=== PATIENT | female | born 1955 | race Caucasian/White ===

== ENCOUNTER 2024-02-26 22:06 | Observation (INO) | payer MEDICARE, OTHER ==
[2024-02-26 23:55] LABS: EOS % 2.3 % (0-4.5); HEMATOCRIT 35.1 % (32.4-45.2); HEMOGLOBIN 12.1 GM/dL (10.7-15.3); LYMPH % 36.5 % (8-40); MCH 27.7 pg (25.7-33.7); MCHC 34.5 g/dl (32.0-36.0); MEAN CELL VOLUME 80.4 fl (80-96); MEAN PLT VOLUME 6.9 fl (7.5-11.1); MONO % 7.1 % (3.8-10.2); NEUT % 53.1 % (42.8-82.8); PLATELET COUNT 388 10^3/uL (134-434); RBC 4.37 M/mm3 (3.60-5.2); RDW 14.1 % (11.6-15.6)
[2024-02-26 23:57] LABS: EPI CELLS 1 /uL (0-25.1); HYALINE CASTS 0 /uL (0-3.1); URINE APPEARANCE CLEAR; URINE BACTERIA 7 /uL (0-1359); URINE BILIRUBIN NEGATIVE (NEGATIVE); URINE COLOR YELLOW; URINE GLUCOSE (UA) NEGATIVE (NEGATIVE); URINE KETONE NEGATIVE (NEGATIVE); URINE LEUK ESTERASE TRACE (NEGATIVE); URINE NITRITE NEGATIVE (NEGATIVE); URINE PROTEIN NEGATIVE (NEGATIVE); URINE RBC 78 /uL (0-23.9); URINE UROBILINOGEN 0.2 mg/dL (0.2-1.0); URINE WBC 5 /uL (0-25.8)
[2024-02-27 00:03] LABS: INR 1.12 (0.83-1.09); PROTHROMBIN TIME (PATIENT) 12.6 SEC (9.7-13.0)
[2024-02-27 00:06] LABS: ACTIVATED PTT 37.4 SECONDS (25.2-36.5)
[2024-02-27 00:16] LABS: POTASSIUM 3.7 mmol/L (3.5-5.1)
[2024-02-27 00:19] LABS: CALCIUM 9.6 mg/dL (8.5-10.1)
[2024-02-27 00:20] LABS: ALBUMIN 3.3 g/dl (3.4-5.0); BLOOD UREA NITROGEN 16.2 mg/dL (7-18)
[2024-02-27 00:23] LABS: CREATININE 0.7 mg/dL (0.55-1.3); PHOSPHOROUS 2.7 mg/dL (2.5-4.9)
[2024-02-27 00:24] LABS: BILIRUBIN,TOTAL 0.3 mg/dL (0.2-1); TOT PROT 6.9 g/dl (6.4-8.2)
[2024-02-27] MEDS ORDERED: AZITHROMYCIN IVPB 500 MG/250 ML BAG IVPB ONE (05:04)
[2024-02-27] MEDS: AZITHROMYCIN IVPB 500 MG in DEXTROSE 5%-WATER - 250 ML IVPB SCH (05:14)
[2024-02-27 06:26] LABS: HEMATOCRIT 36.2 % (32.4-45.2); HEMOGLOBIN 12.4 GM/dL (10.7-15.3); MCH 27.9 pg (25.7-33.7); MCHC 34.2 g/dl (32.0-36.0); MEAN CELL VOLUME 81.6 fl (80-96); MEAN PLT VOLUME 6.9 fl (7.5-11.1); PLATELET COUNT 395 10^3/uL (134-434); RBC 4.43 M/mm3 (3.60-5.2); RDW 13.7 % (11.6-15.6); WHITE BLOOD COUNT 5.6 K/mm3 (4.0-10.0)
[2024-02-27 06:35] LABS: POTASSIUM 3.9 mmol/L (3.5-5.1)
[2024-02-27 06:37] LABS: CALCIUM 9.4 mg/dL (8.5-10.1)
[2024-02-27 06:38] LABS: ALBUMIN 3.3 g/dl (3.4-5.0); BLOOD UREA NITROGEN 15.2 mg/dL (7-18); MAGNESIUM 2.1 mg/dL (1.8-2.4)
[2024-02-27 06:41] LABS: CREATININE 0.8 mg/dL (0.55-1.3); PHOSPHOROUS 3.2 mg/dL (2.5-4.9)
[2024-02-27 06:42] LABS: BILIRUBIN,TOTAL 0.2 mg/dL (0.2-1)
[2024-02-27 07:00] VITALS: BMI 36.4
[2024-02-27] MEDS ORDERED: MECLIZINE HCL 25 MG TABLET (FP) PO PRN (09:10)
[2024-02-27] MEDS: AZITHROMYCIN IVPB 500 MG/250 ML BAG IVPB SCH (09:38)
[2024-02-27] MEDS: ENOXAPARIN NA (PORCINE) 40 MG/0.4 ML DISP.SYRIN SQ SCH (09:43)
[2024-02-27] MEDS: CEFTRIAXONE 1 GM in DEXTROSE 5%-WATER - 50 ML IVPB SCH (09:43)
[2024-02-27] MEDS ORDERED: CEFTRIAXONE 1 GM in DEXTROSE 5%-WATER - 50 ML IVPB SCH (10:00)
[2024-02-27] MEDS ORDERED: LORazepam 1 MG TABLET PO PRN (11:25)
[2024-02-27] MEDS: LORazepam 2 MG TABLET PO ONE (12:16)
[2024-02-27] MEDS: LORazepam 1 MG TABLET PO PRN ×2 (14:50→21:05)
[2024-02-27] MEDS: DOCUSATE SODIUM 100 MG CAPSULE (FP) PO SCH (16:03)
[2024-02-27] MEDS: ATORVASTATIN CA 20 MG TABLET (FP) PO SCH (21:05)
[2024-02-27] MEDS: QUEtiapine FUMARATE 100 MG TABLET (FP) PO SCH (21:05)
[2024-02-27] MEDS: ARTIFICIAL TEARS OPHTHALMIC DROPS OU PRN (21:07)
[2024-02-27 21:46] VITALS: RESP 20
[2024-02-27] MEDS ORDERED: QUEtiapine FUMARATE 100 MG TABLET (FP) PO SCH (22:00)
[2024-02-27] MEDS ORDERED: ATORVASTATIN CA 10 MG TABLET (FP) PO SCH (22:00)
[2024-02-28 08:06] LABS: HEMATOCRIT 37.5 % (32.4-45.2); HEMOGLOBIN 12.6 GM/dL (10.7-15.3); MCH 27.4 pg (25.7-33.7); MCHC 33.5 g/dl (32.0-36.0); MEAN CELL VOLUME 81.8 fl (80-96); MEAN PLT VOLUME 7.2 fl (7.5-11.1); PLATELET COUNT 433 10^3/uL (134-434); RBC 4.59 M/mm3 (3.60-5.2); RDW 13.8 % (11.6-15.6); WHITE BLOOD COUNT 6.8 K/mm3 (4.0-10.0)
[2024-02-28 08:46] LABS: CALCIUM 9.5 mg/dL (8.5-10.1)
[2024-02-28 08:50] LABS: CREATININE 0.7 mg/dL (0.55-1.3)
[2024-02-28 08:56] LABS: POTASSIUM 3.9 mmol/L (3.5-5.1)
[2024-02-28] MEDS ORDERED: PATIENT'S OWN MEDICATION (NON-FORMULARY) (Linaclotide [Linzess] 290 MCG Capsule) PO SCH (10:00)
[2024-02-28] MEDS ORDERED: PATIENT'S OWN MEDICATION (NON-FORMULARY) (Plecanatide [Trulance] 3 MG Tablet) PO SCH (10:00)
[2024-02-28] MEDS ORDERED: VENLAFAXINE HCL 150 MG E.R. CAPSULE PO SCH (10:00)
[2024-02-28] MEDS: MAGNESIUM HYDROX 2400MG/30ML ORAL SUSPENSION 30 ML CUP PO PRN (10:12)
[2024-02-28] MEDS: LORazepam 1 MG TABLET PO PRN (10:13)
[2024-02-28] MEDS: PANTOPRAZOLE 40 MG TABLET PO SCH (10:13)
[2024-02-28] MEDS: MECLIZINE HCL 25 MG TABLET (FP) PO PRN (10:13)
[2024-02-28] MEDS: VENLAFAXINE HCL 75 MG E.R. CAPSULES PO SCH (10:37)
[2024-02-28] MEDS: BREXPIPRAZOLE (REXULTI) 1 MG TABLET (RESTRICTED TO PSYCIATRY) PO SCH (10:37)
[2024-02-28 14:36] VITALS: BP 120/85; PULSE 100; TEMP 98.1
[2024-02-28] MEDS: POLYMYXIN B SULFATE/TMP 10 ML OPHTHALMIC SOLUTION OS SCH (14:48)
== END 2024-02-28 15:35 | disposition home or self-care (01) ==
LOC: JER 22:06 → UNDOADMOB 23:22 → JERBED 23:22 → OBSVTOIN 02-27 05:32 → INTOOBSV 02-27 05:32 → J4W 02-27 06:04 → JERBED 02-27 06:04 → J4W 02-27 09:17 → JERBED 02-27 09:17
PROVIDERS: ADMIT Student in an Organized Health Care Education/Training Program; ATTEND Internal Medicine
PROC: 3E03329 Introduction of Other Anti-infective into Peripheral Vein, Percutaneous Approach (ICD-10-PCS; principal; 2024-02-27)
PROC: 3E023GC Introduction of Other Therapeutic Substance into Muscle, Percutaneous Approach (ICD-10-PCS; 2024-02-27)
DX: F11.23 Opioid dependence with withdrawal (principal); Y92.89 Other specified places as the place of occurrence of the external cause; F41.8 Other specified anxiety disorders; R42 Dizziness and giddiness; K59.00 Constipation, unspecified; E78.5 Hyperlipidemia, unspecified; K58.9 Irritable bowel syndrome, unspecified; Z29.89 Encounter for other specified prophylactic measures; L53.8 Other specified erythematous conditions
CPT/HCPCS: 0241U-QW; 36415; 70450-TC; 70496-TC; 70498-TC; 71045-TC-FY; 74176-TC; 76705-TC; 80048; 80053; 80061; 81003; 82962; 83036; 83605; 83735; 84100; 84439; 84443; 84484; 85025; 85027; 85610; 85651; 85730; 86140; 87040; 87086; 93005; 93010; 93306-TC; 96365; 96372; 96375; 97116-GP; 97162-GP; 99285-25; G0378

== ENCOUNTER 2025-02-02 09:50 | Emergency (ER) | payer MEDICARE, OTHER ==
[2025-02-02 10:11] VITALS: BP 138/82; PULSE 92; RESP 20; TEMP 98.8; BMI 34.3
[2025-02-02] MEDS ORDERED: ACETAMINOPHEN 325 MG TABLET (FP) ONE (11:05)
[2025-02-02] MEDS: ACETAMINOPHEN 325 MG TABLET (FP) PO ONE (11:10)
[2025-02-02 12:39] LABS: HEMATOCRIT 37.3 % (34.1-44.9); MCHC 32.2 g/dl (32.2-35.5); MEAN CELL VOLUME 83.6 fl (79.4-94.8); PLATELET COUNT 330 x10^3/uL (182-369); RDW 14.6 % (12.4-16.4)
[2025-02-02 12:47] LABS: INR 1.11 (0.83-1.09); PROTHROMBIN TIME (PATIENT) 12.1 SEC (9.7-13.0)
[2025-02-02 13:08] LABS: POTASSIUM 4.3 mmol/L (3.5-5.1)
[2025-02-02 13:10] LABS: ALBUMIN 3.5 g/dl (3.4-5.0); CALCIUM 10.1 mg/dL (8.5-10.1)
[2025-02-02 13:11] LABS: BLOOD UREA NITROGEN 17.8 mg/dL (7-18); MAGNESIUM 2.1 mg/dL (1.8-2.4)
[2025-02-02 13:14] LABS: CREATININE 0.8 mg/dL (0.55-1.3)
[2025-02-02 13:15] LABS: BILIRUBIN,TOTAL 0.5 mg/dL (0.2-1); TOT PROT 7.2 g/dl (6.4-8.2)
== END 2025-02-02 15:38 | disposition home or self-care (01) ==
LOC: JER 09:50
DX: R05.9 Cough, unspecified (principal)
CPT/HCPCS: 36415; 71046-TC-FY; 80053; 83735; 84484; 85027; 85610; 85730; 93005; 93010; 99285-25